=== PATIENT | female | born 1975 | race Caucasian/White ===

== ENCOUNTER 2017-08-05 13:27 | Inpatient (IN) | payer BC ==
[~2017-08-05] VITALS: Ht 157.5 cm; Wt 86.2 kg
[2017-08-05 13:31] VITALS: BP_SYST 142
--- NOTE | 2017-08-05 13:35 | NUR ---
RECEIVED REPORT FROM PHYLLIS TRIAGE NURSE AND WILL ASSUME CARE. PT STATES THAT SHE GETS WINDED EVEN WITH SMALL AMT OF EXERTION. RECENT H/O BLACK TARRY STOOLS. DENIES ANY PAIN OR DISCOMFORT
[2017-08-05] MEDS ORDERED: NACL 0.9% 1,000 ML IV SCH (13:46)
--- NOTE | 2017-08-05 13:50 | NUR ---
IV STARTED AND LABS SENT
--- NOTE | 2017-08-05 13:55 | NUR ---
XRAYS BEING DONE AT BEDSIDE.
[2017-08-05] MEDS ORDERED: PANTOPRAZOLE SODIUM 40 MG/VIAL (PROTONIX) IVP ONE (14:00)
[2017-08-05 14:12] LABS: BASOPHILS % (AUTO) 0.5 % (0.0-2.0); EOSINOPHILS # (AUTO) 0.1 K/uL (0.0-0.4); EOSINOPHILS % (AUTO) 1.6 % (0.0-4.0); HEMATOCRIT 25.9 % (36-48); HEMOGLOBIN 8.5 g/dL (12.0-16.0); LYMPHOCYTES # (AUTO) 2.3 K/uL (1.0-5.5); LYMPHOCYTES % (AUTO) 29.5 % (20.5-51.5); MEAN CORPUSCULAR HEMOGLOBIN 29 pg (27-31); MEAN CORPUSCULAR HGB CONC 33 % (32-36); MEAN CORPUSCULAR VOLUME 89 fL (79.0-98.0); MONOCYTES # (AUTO) 0.5 K/uL (0.0-1.0); NEUTROPHILS # (AUTO) 4.9 K/uL (1.8-7.7); NEUTROPHILS % (AUTO) 62.4 % (40.0-70.0); PLATELET COUNT (AUTO) 312 K/uL (130-430); RED BLOOD CELL COUNT(AUTO) 2.92 MIL/uL (4.2-6.2); RED CELL DISTRIBUTION WIDTH 12.7 % (9.0-15.0); WHITE BLOOD COUNT (AUTO) 7.8 K/uL (4.8-10.8)
[2017-08-05 14:20] LABS: CALCIUM 8.5 mg/dL (8.4-11.0); CREATININE 0.86 mg/dL (0.55-1.30); POTASSIUM 3.8 mmol/L (3.5-5.1)
--- NOTE | 2017-08-05 14:22 | NUR ---
TAKEN TO RADIOLOGY VIA BAILEE
[2017-08-05 14:25] LABS: ALBUMIN 3.7 g/dL (3.4-4.8); TOTAL BILIRUBIN 0.4 mg/dL (0.0-1.0)
--- NOTE | 2017-08-05 14:35 | NUR ---
Rectal exam performed by DR RIDLEY with TEMI QUEZADA RN at bedside during procedure. Patient tolerated well.
[2017-08-05 14:45] LABS: INR 0.9 (0.8-1.2); PROTHROMBIN TIME 9.3 SECS (9.5-12.5)
--- NOTE | 2017-08-05 14:45 | NUR ---
PT IS UNAWARE OF DOSAGE OF LEVOTHYROXINE AND TAKES A BLOOD PRESSURE MEDICATION, UNAWARE OF NAME OF MED. DR ANDRADE AWARE
--- NOTE | 2017-08-05 15:11 | NUR ---
Patient will be admitted to care of DR ANDRADE. Admitted to MED SURG unit. Will go to room 119-B. Belongings list completed. Summary report printed. Report GIVEN TO LEO
--- NOTE | 2017-08-05 15:26 | NUR ---
ADMISSION NOTE Received patient from ER via arabella, received report from TEMI JUSTIN. Patient admitted with diagnosis of GI BLEED. Patient oriented to hospital routine, call light, toileting and safety-patient verbalized understanding.
[2017-08-05 15:32] VITALS: BP_SYST 130
--- NOTE | 2017-08-05 15:38 | NUR ---
CONSULT GI GI BLEED DR DOAN [phone] DR WILLIAMSON IMPROVEMENT COORDINATOR S/W KANE EXCHANGE @ [phone]
[2017-08-05 16:00] VITALS: BP_SYST 130
--- NOTE | 2017-08-05 16:00 | NUR ---
INITIAL NOTE PT LAYING IN BED, AWAKE, ALERT AND ORIENTED X4, NO S/S OF ACUTE DISTRESS, NO COMPLIANT OF PAIN AT THIS TIME, VSS, BREATHING EVEN AND UNLABORED, IV TO LAC INTACT AND INFUSING D5 NS AT 100, NO S/S OF INFILTRATION NOTED, PLAN OF CARE DISCUSSED, PT AWARE OF GI CONSULT PLACED FOR DR DOAN, PT ORIENTED TO ROOM AND USE OF CALL LIGHT, PT ENCOURAGED TO NOT GET OUT BED BY HERSELF TO PLEASE ASK FOR ASSISTANCE, SAFETY PRECAUTIONS IN PLACE, CALL LIGHT WITHIN REACH, WILL MONITOR PT CLOSELY, SEVERAL FAMILY MEMBERS NOTED AT BEDSIDE.
[2017-08-05] MEDS: D5NS 500 ML IV SCH ×2 (16:09→20:00)
[2017-08-05] MEDS ORDERED: LEVO50TA77 PO (16:10)
[2017-08-05] MEDS ORDERED: LOSA50TA3 PO (16:10)
[2017-08-05] MEDS ORDERED: CYAN50008 PO (16:15)
[2017-08-05] MEDS ORDERED: FOLI-43 PO (16:15)
[2017-08-05] MEDS ORDERED: MULT-1100 PO (16:18)
[2017-08-05] MEDS ORDERED: MUPIROCIN 2% TOPICAL OINTMENT 22 GM NS PRN (16:30)
[2017-08-05] MEDS ORDERED: LORazepam 2 MG/ML VIAL IVP PRN (16:30)
[2017-08-05] MEDS ORDERED: ACETAMINOPHEN 325 MG TABLET PO PRN (16:30)
[2017-08-05] MEDS ORDERED: MAGNESIUM SULFATE 50 ML IV PRN (16:30)
[2017-08-05] MEDS ORDERED: ZOLPIDEM TARTRATE 5 MG TABLET PO PRN (16:30)
[2017-08-05] MEDS ORDERED: MORPHINE 2 MG/ML INJ. SYRINGE IVP PRN (16:30)
[2017-08-05] MEDS ORDERED: POTASSIUM CHLORIDE 20 MEQ TAB.PRT.SR PO PRN (16:30)
[2017-08-05] MEDS ORDERED: ONDANSETRON HCL 4 MG/2 ML VIAL IVP PRN (16:30)
[2017-08-05] MEDS ORDERED: DOCUSATE SODIUM 100 MG CAPSULE PO PRN (16:30)
[2017-08-05 16:57] VITALS: BP_SYST 132
--- NOTE | 2017-08-05 17:08 | NUR ---
DR WILLIAMSON CALLED FOR PATIENT HISTORY AND STATUS, UPDATED ON PATIENT AND LABS, NEW ORDER RECEIVED TO GET CONSENT FOR EGD IN AM, PT TO BE NPO AFTER MIDNIGHT, WILL PLACE ORDERS AND UPDATED PATIENT
--- NOTE | 2017-08-05 18:47 | NUR ---
CLOSING NOTE PATIENT SITTING UP IN BED, FAMILY AT BEDSIDE, NO S/S OF ACUTE DISTRESS, DENIES ANY PAIN AT THIS TIME, PT AWARE SHE WILL BE NPO AFTER MIDNIGHT, ALL NEEDS ATTENDED TO, SAFETY PRECAUTIONS MAINTAINED, CALL LIGHT WITHIN REACH, WILL GIVE REPORT TO FOLLOWING SHIFT
--- NOTE | 2017-08-05 20:20 | NUR ---
Opening note and new IV Patient in bed with family at bedside. Patient AAOX4 and able to make needs known. Patient verbalized understanding about not eating or drinking anything by mouth after midnight. Patient educated on the use of the call light and patient verbalized understanding. IV to right AC infiltrated. Will start new one. Bed in lowest position with bed alarm on and call light with patient.
--- NOTE | 2017-08-05 20:50 | NUR ---
New IV New IV started on Right AC 20 gauge Patent with no redness noted. IVF started with patient tolerating well.
[2017-08-05 21:03] VITALS: BP_SYST 149
--- NOTE | 2017-08-05 22:45 | NUR ---
RN notes Patient in bed resting. No acute distress or SOB noted at this time. All needs met. Bed in lowest position with bed alarm on and call light with patient.
--- NOTE | 2017-08-06 00:05 | NUR ---
RN notes Patient in bed sleeping. No acute distress or SOB noted at this time. IVF running as ordered with patient tolerating well. All needs met. Bed in lowest position with bed alarm on and call light with patient.
[2017-08-06 00:13] VITALS: BP_SYST 101
[2017-08-06] MEDS: D5NS 500 ML IV SCH ×3 (03:00→20:35)
--- NOTE | 2017-08-06 06:45 | NUR ---
Closing Notes Patient in bed sleeping. No acute distress or SOB noted at this time. IVF running as ordered with patient tolerating well. Hourly rounding done throughout shift and PRN . All needs met. Bed in lowest position with bed alarm on and call light with patient. Will endorse to day shift nurse patient's plan of care.
[2017-08-06 06:49] LABS: BASOPHILS % (AUTO) 0.3 % (0.0-2.0); EOSINOPHILS # (AUTO) 0.1 K/uL (0.0-0.4); LYMPHOCYTES # (AUTO) 2.4 K/uL (1.0-5.5); LYMPHOCYTES % (AUTO) 37.6 % (20.5-51.5); MEAN CORPUSCULAR HEMOGLOBIN 30 pg (27-31); MEAN CORPUSCULAR HGB CONC 34 % (32-36); MEAN CORPUSCULAR VOLUME 90 fL (79.0-98.0); MONOCYTES # (AUTO) 0.4 K/uL (0.0-1.0); NEUTROPHILS # (AUTO) 3.6 K/uL (1.8-7.7); NEUTROPHILS % (AUTO) 54.1 % (40.0-70.0); PLATELET COUNT (AUTO) 259 K/uL (130-430); RED BLOOD CELL COUNT(AUTO) 2.24 MIL/uL (4.2-6.2); WHITE BLOOD COUNT (AUTO) 6.5 K/uL (4.8-10.8)
[2017-08-06] MEDS: LEVOTHYROXINE SODIUM 0.05 MG TABLET PO SCH (07:00)
[2017-08-06 07:12] LABS: HEMOGLOBIN 6.7 g/dL (12.0-16.0)
[2017-08-06 07:13] LABS: HEMATOCRIT 20.1 % (36-48)
[2017-08-06 07:17] LABS: CALCIUM 7.8 mg/dL (8.4-11.0); CREATININE 0.7 mg/dL (0.55-1.30); POTASSIUM 3.7 mmol/L (3.5-5.1)
--- NOTE | 2017-08-06 07:25 | NUR ---
Initial Note Received report from the night nurse Madelaine. Pt AOX4. No signs of distress noted at this time. Bed is at lowest position with alarm ON. Call light within reach. Pt''s H/H 6.7/20.1 Waiting for blood transfusion orders.
[2017-08-06] MEDS ORDERED: ACETAMINOPHEN 325 MG TABLET PO ONE (07:30)
[2017-08-06] MEDS ORDERED: LORATADINE 10 MG TABLET PO ONE (07:30)
[2017-08-06 07:45] VITALS: BP_SYST 152
[2017-08-06] MEDS: PANTOPRAZOLE SODIUM 40 MG/VIAL (PROTONIX) IVP SCH (08:48)
[2017-08-06] MEDS: MORPHINE 2 MG/ML INJ. SYRINGE IVP PRN ×2 (08:51→17:44)
[2017-08-06] MEDS: LOSARTAN POTASSIUM 50 MG TABLET (COZAAR) PO SCH (09:00)
--- NOTE | 2017-08-06 10:15 | NUR ---
Blood transfusion 1st blood transfusion started
--- NOTE | 2017-08-06 10:30 | NUR ---
Blood transfusion Pt is tolerating well the 1st blood transfusion order. Vital signs are within normal limit. No signs of allergic reaction noted.
--- NOTE | 2017-08-06 11:25 | NUR ---
RN Rounds Pt is having one unit of PRBCs at this time. Pt is tolerating well the blood transfusion. No signs of distress noted at this time. Bed is at lowest position with bed alarm ON. Family members at bedside. Call light within reach.
[2017-08-06] MEDS ORDERED: SIMETHICONE 40 MG/0.6 ML ML ONE (11:42)
[2017-08-06 12:17] VITALS: BP_SYST 127
--- NOTE | 2017-08-06 12:43 | NUR ---
Blood transfusion 1st Blood transfusion has finished. Pt's vital signs within normal limit.
[2017-08-06] MEDS: MIDAZOLAM HCL 5 MG/5 ML VIAL ONE ×4 (13:48→13:54)
[2017-08-06] MEDS: MEPERIDINE HCL/PF 100 MG/ML AMP ONE ×3 (13:48→13:56)
--- NOTE | 2017-08-06 15:30 | NUR ---
RN Rounds Pt is having the second unit of blood transfusion. Pt is tolerating well the blood transfusion. No signs of allergic reaction noted. Bed is at lowest position with bed alarm ON. Call light within reach.
[2017-08-06 16:00] VITALS: BP_SYST 119
[2017-08-06] MEDS ORDERED: BISACODYL 5 MG TABLET.DR (DULCOLAX) PO ONE (17:00)
--- NOTE | 2017-08-06 17:30 | NUR ---
2ND Unit of blood transfusion Pt tolerated well the 2nd unit of blood transfusion. V/S within normal limits at the end of transfusion.
[2017-08-06] MEDS ORDERED: GOLYTELY / COLYTE SOLUTION 4 LITERS PO ONE (18:00)
--- NOTE | 2017-08-06 18:58 | NUR ---
Closing Note Pt AOX4. No signs of distress noted at this time. Bed is at lowest position with alarm ON. Family members at bedside. Call light within reach. Pt is on GO lite preparing for colonoscopy on 08/07 in AM. Pt needs to be NPO after midnight and have a tap water enema in AM. Pt had a Esophagogastroduodenoscopy with biopsy done today.
--- NOTE | 2017-08-06 19:25 | NUR ---
RN Opening Note: Report received from NHAN Patino. Pt presented sitting in chair near bathroom door. Multiple family members present. Pt is awake, alert and oriented x4. Denies pain. IVF infusing without problems. Site clear. Will continue to monitor.
[2017-08-06 20:31] VITALS: BP_SYST 153
--- NOTE | 2017-08-06 20:35 | NUR ---
RN note: Pt continues to sit near bathroom door. Drinking GoLytely bowel prep for colonoscopy in am. No distress noted. Tolerating prep well. Ambulating to bathroom without difficulty. Gait steady. Pt states she "feels much better after transfusions, even my headaches are gone." VSS. Assessed. IVF changed to D5.9NS. Rate changed to 100ml/hr. All questions/concerns addressed. Pt aware of tap water enema in a.m. and NPO status after midnight. Will continue to monitor pt.
--- NOTE | 2017-08-06 22:00 | NUR ---
RN Note/Bowel prep completed: Pt consumed GoLytely bowel prep in it's entirety. States she is bowels are becoming clear. Offered BSC for pt to use during the night. Pt refused. Mother at bedside, will spend the night with pt. Urine culture collected and taken to lab. All needs met.
[2017-08-06 23:16] LABS: BILIRUBIN,URINE NEGATIVE (NEGATIVE); BLOOD, URINE 3+ (NEGATIVE); CLARITY/URINE SL CLOUDY (CLEAR); COLOR,URINE YELLOW (YELLOW); GLUCOSE,URINE NEGATIVE (NEGATIVE); KETONES,URINE NEGATIVE (NEGATIVE); LEUKOCYTE ESTERASE ,URINE NEGATIVE (NEGATIVE); NITRITE, URINE NEGATIVE (NEGATIVE); PH,URINE 5.5 (5.0-8.0); PROTEIN URINE NEGATIVE (NEGATIVE); UROBILINOGEN,URINE 0.2 (0.2-1.0)
[2017-08-06 23:23] LABS: BACTERIA,URINE FEW /HPF (None Seen); RBC,URINE >100 /HPF (0-3); WBC,URINE 0-3 /HPF (0-3)
[2017-08-06 23:29] VITALS: BP_SYST 127
--- NOTE | 2017-08-06 23:33 | NUR ---
RN round: Pt ready to go to sleep. All needs addressed. IVF continue to infuse without difficulty. Site benign. Belongings and Call light within reach. Bed in lowest position with brake on. Side rails up x2.
--- NOTE | 2017-08-07 | NUR ---
RN Note/NPO status: Pt NPO for colonoscopy tomorrow and is aware.
--- NOTE | 2017-08-07 01:30 | NUR ---
RN rounds: Pt sleeping without distress. Resp easy and even. Skin warm, dry and pink. IVF infusing without problems. Mother asleep in chair next to pt's bed.
--- NOTE | 2017-08-07 03:54 | NUR ---
RN rounds: Pt asleep without distress. IVF infusing at 100 ml/hr as per MD order. Pt in NAD. Mother sleep in chair at bedside.
--- NOTE | 2017-08-07 06:45 | NUR ---
RN note/ Enema until clear: Pt given 1500 ml total of warm tap water until return was clear. Pt kasandra procedure very well. IVF continues to infuse at 100 ml/hr with no problems. Dry blood noted at IV site but line was flushed with 10 ml NS as per protocol with no s/s of infiltration and no pain. Pt continues to deny pain/discomfort. Anxiously awaiting tests and results to follow. Will endorse pt to dayshift RN for continuity of care.
[2017-08-07 06:46] LABS: PROTHROMBIN TIME 9.9 SECS (9.5-12.5)
[2017-08-07 06:53] LABS: CALCIUM 8.1 mg/dL (8.4-11.0); CREATININE 0.6 mg/dL (0.55-1.30); POTASSIUM 3.5 mmol/L (3.5-5.1)
[2017-08-07 07:00] LABS: BASOPHILS % (AUTO) 0.4 % (0.0-2.0); EOSINOPHILS # (AUTO) 0.1 K/uL (0.0-0.4); EOSINOPHILS % (AUTO) 1.7 % (0.0-4.0); HEMATOCRIT 24.6 % (36-48); HEMOGLOBIN 8.3 g/dL (12.0-16.0); LYMPHOCYTES # (AUTO) 1.6 K/uL (1.0-5.5); LYMPHOCYTES % (AUTO) 29.8 % (20.5-51.5); MEAN CORPUSCULAR HEMOGLOBIN 30 pg (27-31); MEAN CORPUSCULAR HGB CONC 34 % (32-36); MEAN CORPUSCULAR VOLUME 90 fL (79.0-98.0); MONOCYTES # (AUTO) 0.4 K/uL (0.0-1.0); MONOCYTES % (AUTO) 8.2 % (1.7-9.3); NEUTROPHILS # (AUTO) 3.2 K/uL (1.8-7.7); NEUTROPHILS % (AUTO) 59.9 % (40.0-70.0); PLATELET COUNT (AUTO) 220 K/uL (130-430); RED BLOOD CELL COUNT(AUTO) 2.74 MIL/uL (4.2-6.2); RED CELL DISTRIBUTION WIDTH 12.7 % (9.0-15.0); WHITE BLOOD COUNT (AUTO) 5.3 K/uL (4.8-10.8)
[2017-08-07] MEDS: D5NS 500 ML IV SCH ×5 (07:00→16:59)
[2017-08-07] MEDS ORDERED: SIMETHICONE 40 MG/0.6 ML ML ONE (07:12)
[2017-08-07] MEDS ORDERED: MEPERIDINE HCL/PF 100 MG/ML AMP ONE (07:12)
[2017-08-07] MEDS ORDERED: MIDAZOLAM HCL 5 MG/5 ML VIAL ONE (07:12)
--- NOTE | 2017-08-07 07:40 | NUR ---
Note Pt off the floor via wheelchair to GI lab for colonoscopy. Pt's IVF's were saline locked at this time. No SOB/resp distress or pain/discomfort noted at this time. IV in right AC intact and patent at this time.
[2017-08-07 07:57] VITALS: BP_SYST 128
[2017-08-07] MEDS: LOSARTAN POTASSIUM 50 MG TABLET (COZAAR) PO SCH (09:00)
--- NOTE | 2017-08-07 09:05 | NUR ---
Note Pt back from GI lab. Regular diet tray ordered for the pt at this time per Dr Samano's order. No needs noted at this time. Findings were negative for any significant bleed. Pt has hemorrhoids. Small bowel follow through test ordered. No needs noted. Call light within reach.
[2017-08-07] MEDS: LEVOTHYROXINE SODIUM 0.05 MG TABLET PO SCH (09:23)
[2017-08-07] MEDS: PANTOPRAZOLE SODIUM 40 MG/VIAL (PROTONIX) IVP SCH (09:24)
--- NOTE | 2017-08-07 10:00 | NUR ---
Note Radiology dept called, their equipment has been down for few days, not sure when the equipment will be up. Test cannot been done today. Dr Samano was called, waiting for call back. No needs noted. Call light within reach.
--- NOTE | 2017-08-07 11:30 | NUR ---
Note Pt sitting up in bed after eating her regular diet. No N/V noted at this time. Pt's mother at bedside at this time - has been at bedside the whole shift. No needs noted at this time. Call light within reach. Pt able to take fluids without any difficulty. Right AC IV intact and patent at this time.
[2017-08-07 12:24] VITALS: BP_SYST 103
--- NOTE | 2017-08-07 13:10 | NUR ---
Note Spoke to Dr Samano and notified MD that equipment for small bowel series has been down, not sure when machine will be up and working. Dr Samano requested that case management be called to see if pt can be transferred to [facility] for the procedure. clinical product manager Zack was called and notified, complex case manager will find out if transfer is possible and will get back to the RN.
[2017-08-07] MEDS: MORPHINE 2 MG/ML INJ. SYRINGE IVP PRN ×2 (16:08→22:57)
--- NOTE | 2017-08-07 16:21 | NUR ---
DC Planning- Received a message from Tayler luna: nurse inquiring possible transfer to [facility] regarding small bowel follow through. CM spoke with patient agreeable for CM to contact [facility]. CM called our Radiology dept first about pt's procedure for small bowel follow through, per Malcolm our machine is down and might be operational tomorrow. Malcolm instructed CM to call tomorrow morning. CM called [facility] p# , per Rob small bowel follow through might take 10-24 hours it would be better to have patient transfer tomorrow if our machine is still down.
--- NOTE | 2017-08-07 16:25 | NUR ---
Note Dr Samano was called and notified that counter caser Karen stated she checked with Radiology dept, they would have the equipment up and running by tomorrow and the "small bowel follow through" will be done in am. Pt resting in bed after Morphine IVP medication was given for moderate headache. Call light within reach.
--- NOTE | 2017-08-07 16:27 | NUR ---
IN 1529- BANDAR received a phone call from NHAN Arguelles that Callie [phone] called at nursing station and ambulance will arrive within 45 minutes. BANDAR called Callie and per Nury, the ambulance is [facility]. Patient's packet to complete given to gift shop assistant Sai. Addendum: 08/07/17 at 1632 by Karen Rivera RN Error entry. the documentation is for another patient.
[2017-08-07 16:28] VITALS: BP_SYST 115
--- NOTE | 2017-08-07 18:00 | NUR ---
NOTE Pt was resting in bed, now sitting up eating her dinner. Right AC IV intact and patent at this time, saline locked. No SOB/resp distress or headache pain/discomfort noted. Pt was checked on q1' and PRN for needs and care. Dr Alvarez was also made aware that pt will have her "small bowel follow through" tomorrow am. No needs noted. Call light within reach.
[2017-08-07 19:30] VITALS: BP_SYST 128
--- NOTE | 2017-08-07 19:30 | NUR ---
INITIAL NOTES REPORT RECEIVED FROM DAY NURSE AT THE BEDSIDE. PT IS ALERT AWAKE AND ORIENTED, ABLE TO MAKE NEEDS KNOWN. NO S/S OF SOB OR ACUTE DISTRESS. VSS. PATIENT DENIES PAIN AT THIS TIME. PATIENT HAS IV ACCESS TO RIGHT AC, HOWEVER SHE STATES IT IS BOTHERING HER AND WOULD LIKE IT TO BE REMOVED. IV WAS REMOVED PER PATIENT REQUEST. CATHETER INTACT, NO ACTIVE BLEEDING NOTED. WILL RESTART NEW IV. PLAN OF CARE DISCUSSED WITH THE PATIENT. USE OF CALL LIGHT ENCOURAGED. WILL CONT. TO MONITOR FOR ANY CHANGES. SAFETY AND FALL PRECAUTIONS IN PLACE. CALL LIGHT IN REACH. FAMILY AT THE BEDSIDE. Addendum: 08/07/17 at 2116 by Noreen Perez RN MACHINES FOR SMALL BOWEL FOLLOW THROUGH ARE TO BE UP AND RUNNING TOMORROW. PT. INFORMED THAT SHE SHOULD BE NPO PAST MIDNIGHT IN CASE THE PROCEDURE TAKES PLACE. PAYABLE REPRESENTATIVE AWARE.
--- NOTE | 2017-08-07 22:30 | NUR ---
ROUNDS PT SHOWERED. PT WAS PROVIDED WITH NEW LINEN AND GOWNS. PT RESTING IN BED COMFORTABLY. NEW IV STARTED BY AQUATICS SPECIALIST LARRY. #20 TO LEFT FOREARM. FLUSHES WELL WITH GOOD BLOOD RETURN. ALL NEEDS MET AT THIS TIME. WILL CONT. TO MONITOR.
[2017-08-08 00:09] VITALS: BP_SYST 125
--- NOTE | 2017-08-08 00:56 | NUR ---
ROUNDS PT. RESTING IN BED WITH EYES CLOSED. CHEST RISE AND FALL NOTED. NO SIGNS OF ACUTE DISTRESS. NO FACIAL GRIMACING INDICATING PAIN. PT. NPO FOR PROBABLY SMALL BOWEL FOLLOW THROUGH IN AM IF MACHINES ARE WORKING. WILL CONT. TO MONITOR FOR CHANGES. SAFETY AND FALL PRECAUTIONS IN PLACE. CALL LIGHT IN REACH.
--- NOTE | 2017-08-08 02:15 | NUR ---
ROUNDS PT. RESTING IN BED, NO SIGNS OF DISTRESS. DENIES PAIN AT THIS TIME. IV PATENT AND INTACT. ALL NEEDS MET AT THIS TIME. WILL CONT. TO MONITOR FOR CHANGES. SAFETY AND FALL PRECAUTIONS IN PLACE, CALL LIGHT IN REACH.
--- NOTE | 2017-08-08 04:15 | NUR ---
ROUNDS PT. RESTING IN BED WITH EYES CLOSED. CHEST RISE AND FALL NOTED. NO SIGNS OF ACUTE DISTRESS, NO FACIAL GRIMACING FOR PAIN. WILL CONT. TO MONITOR. CALL LIGHT IN REACH.
[2017-08-08] MEDS: LEVOTHYROXINE SODIUM 0.05 MG TABLET PO SCH (06:06)
--- NOTE | 2017-08-08 06:23 | NUR ---
CLOSING NOTES PT. RESTING IN BED AT THIS TIME. IV REMAINS PATENT AND INTACT. PT. DENIES PAIN AND DISCOMFORT AT THIS TIME. PT. REMAINED NPO SINCE MIDNIGHT FOR POSSIBLE SMALL BOWEL FOLLOW THROUGH THIS AM IF MACHINES ARE WORKING. ALL NECESSARY NEEDS WERE MET THROUGHOUT THE SHIFT. SAFETY AND FALL PRECAUTIONS WERE MAINTAINED. WILL ENDORSE CARE TO AM NURSE. CALL LIGHT IN REACH, BED IN LOWEST LOCKED POSITION.
[2017-08-08 06:59] LABS: EOSINOPHILS # (AUTO) 0.1 K/uL (0.0-0.4); EOSINOPHILS % (AUTO) 1.6 % (0.0-4.0); HEMATOCRIT 25.2 % (36-48); HEMOGLOBIN 8.4 g/dL (12.0-16.0); LYMPHOCYTES # (AUTO) 1.1 K/uL (1.0-5.5); LYMPHOCYTES % (AUTO) 13.3 % (20.5-51.5); MEAN CORPUSCULAR HEMOGLOBIN 30 pg (27-31); MEAN CORPUSCULAR HGB CONC 34 % (32-36); MEAN CORPUSCULAR VOLUME 90 fL (79.0-98.0); MONOCYTES # (AUTO) 0.5 K/uL (0.0-1.0); NEUTROPHILS # (AUTO) 6.9 K/uL (1.8-7.7); NEUTROPHILS % (AUTO) 79.1 % (40.0-70.0); PLATELET COUNT (AUTO) 281 K/uL (130-430); RED BLOOD CELL COUNT(AUTO) 2.81 MIL/uL (4.2-6.2); RED CELL DISTRIBUTION WIDTH 13.1 % (9.0-15.0); WHITE BLOOD COUNT (AUTO) 8.6 K/uL (4.8-10.8)
[2017-08-08 07:03] LABS: CREATININE 0.71 mg/dL (0.55-1.30); POTASSIUM 3.9 mmol/L (3.5-5.1)
--- NOTE | 2017-08-08 07:35 | NUR ---
OPENING NOTE: RECEIVED PATIENT FROM USHA HAY NURSE. PATIENT AAOX4. NO ACUTE SIGNS OF RESP DISTRESS, NO SOB. BREATHING EVEN AND UNLABORED. IV INTACT AND NO REDNESS/SWELLING TO SITE. BED AT LOWEST POSITION, CALL LIGHT IN REACH. UPDATED PATIENT WITH PLAN OF CARE, PATIENT VERBALIZED UNDERSTANDING.
[2017-08-08 08:00] VITALS: BP_SYST 131
--- NOTE | 2017-08-08 08:01 | NUR ---
Nutrition Update Joseph Scale 18 noted. Pt admitted for gastrointestinal bleed Diet: regular diet BMI: 34.8 kg/m2 RD to follow per nutrition care standards.
--- NOTE | 2017-08-08 08:15 | NUR ---
PATIENT WENT TO GI: PATIENT WENT TO GI FOR SMALL BOWEL SERIES.
--- NOTE | 2017-08-08 10:24 | NUR ---
AMEYA King Note- 0800- CM spoke with Kaycee of Radiology , Per Kaycee our machine is working today and they can do Small bowel Follow through. 0900- CM went to pt room, pt not there , however, mother at bedside. Pt's Mother informed CM that pt is already having her Small bowel Follow through study.
[2017-08-08] MEDS: PANTOPRAZOLE SODIUM 40 MG/VIAL (PROTONIX) IVP SCH (11:34)
[2017-08-08] MEDS: LOSARTAN POTASSIUM 50 MG TABLET (COZAAR) PO SCH (11:35)
[2017-08-08 12:00] VITALS: BP_SYST 132
--- NOTE | 2017-08-08 12:00 | NUR ---
ROUNDING: PATIENT IS BACK IN ROOM FROM RADIOLOGY. PATIENT AAOX4. NO ACUTE SIGNS OF RESP DISTRESS, NO SOB. BREATHING EVEN AND UNLABORED. IV INTACT AND PATENT, NO REDNESS/SWELLING TO SITE. BED AT LOWEST POSITION, CALL LIGHT IN REACH. ALL NEEDS MET AT THIS TIME.
[2017-08-08] MEDS ORDERED: FERR-57 PO (13:49)
[2017-08-08 14:04] VITALS: BP_SYST 131
--- NOTE | 2017-08-08 14:05 | NUR ---
ROUNDING: PATIENT RESTING IN BED COMFORT. PATIENT AWAKE AND ALERT. NO ACUTE SIGNS OF RESP DISTRESS, NO SOB. BREATHING EVEN AND UNLABORED. IV INTACT AND PATENT, NO REDNESS/SWELLING TO SITE. BED AT LOWEST POSITION, CALL LIGHT IN REACH.
--- NOTE | 2017-08-08 15:00 | NUR ---
DR. WILLIAMSON AT BEDSIDE: DR. WILLIAMSON AT BESIDE SPEAKING WITH PATIENT AND FAMILY IN REGARDS TO PATIENT'S PROCEDURE RESULTS AND PLAN OF CARE.
[2017-08-08] MEDS ORDERED: PRO40 PO (15:21)
[2017-08-08 15:25] VITALS: BP_SYST 131
--- NOTE | 2017-08-08 15:33 | NUR ---
D/C Patient Patient given medication reconciliation form and D/C instructions. Exit Care provided. Patient verbalized understanding. MD discussed with patient the results and treatment provided. Ambulatory with steady gait for discharge to home. Patient in stable condition, ID band removed. IV catheter removed, intact and dressing applied, no active bleeding. Rx of given. Patient educated on pain management. All belongings sent with patient. Dr. Samano spoke to patient in regards with following up with Primary Care Provider and Dr. Samano for Pill Cam. Patient verbalized understanding.
== END 2017-08-08 15:33 | disposition home or self-care (01) | DRG 379 ==
LOC: SED 13:27 → SMU 14:58
PROVIDERS: ADMIT General Practice; ATTEND General Practice
PROC: 0DBA8ZX Excision of Jejunum, Via Natural or Artificial Opening Endoscopic, Diagnostic (ICD-10-PCS; 2017-08-06)
PROC: 0DB68ZX Excision of Stomach, Via Natural or Artificial Opening Endoscopic, Diagnostic (ICD-10-PCS; 2017-08-06)
PROC: 30233N1 Transfusion of Nonautologous Red Blood Cells into Peripheral Vein, Percutaneous Approach (ICD-10-PCS; principal; 2017-08-06 14:00)
PROC: 0DJD8ZZ Inspection of Lower Intestinal Tract, Via Natural or Artificial Opening Endoscopic (ICD-10-PCS; 2017-08-07)
DX: K29.71 Gastritis, unspecified, with bleeding (principal); D50.0 Iron deficiency anemia secondary to blood loss (chronic); E03.9 Hypothyroidism, unspecified; K64.8 Other hemorrhoids; K52.9 Noninfective gastroenteritis and colitis, unspecified; I10 Essential (primary) hypertension; E66.9 Obesity, unspecified; Z87.891 Personal history of nicotine dependence; Z98.84 Bariatric surgery status; Z68.34 Body mass index [BMI] 34.0-34.9, adult; Z79.899 Other long term (current) drug therapy
CPT/HCPCS: 36415; 43239; 45378; 71045; 74250-TC; 80048; 80053; 81000-TC; 83735-TC; 85025; 85610-TC; 85730-TC; 86886; 86900; 86901; 86920; 87081; 88305; 88312; 88313; 93005; 96361; 96372; 99285; C9113; J2175; J2250; J2270; J7030; J7042; J7060; P9021

== ENCOUNTER 2017-11-09 10:50 | Day surgery (SDC) | payer BC ==
[~2017-11-09] VITALS: Ht 157.5 cm; Wt 90.3 kg
[~2017-11-09 10:50] MED LIST: CYAN50008 PO; FERR-57 PO; FOLI-43 PO; LEVO50TA77 PO; LOSA50TA3 PO; MULT-1100 PO; PRO40 PO
[2017-11-09 11:28] LABS: BASOPHILS % (AUTO) 0.7 % (0.0-2.0); EOSINOPHILS # (AUTO) 0.1 K/uL (0.0-0.4); EOSINOPHILS % (AUTO) 1.7 % (0.0-4.0); HEMATOCRIT 37.6 % (36-48); HEMOGLOBIN 12.5 g/dL (12.0-16.0); LYMPHOCYTES # (AUTO) 1.4 K/uL (1.0-5.5); MEAN CORPUSCULAR HEMOGLOBIN 29 pg (27-31); MEAN CORPUSCULAR HGB CONC 33 % (32-36); MEAN CORPUSCULAR VOLUME 87 fL (79.0-98.0); MONOCYTES # (AUTO) 0.5 K/uL (0.0-1.0); MONOCYTES % (AUTO) 7.8 % (1.7-9.3); NEUTROPHILS # (AUTO) 3.9 K/uL (1.8-7.7); NEUTROPHILS % (AUTO) 66.8 % (40.0-70.0); PLATELET COUNT (AUTO) 297 K/uL (130-430); RED CELL DISTRIBUTION WIDTH 13.1 % (9.0-15.0); WHITE BLOOD COUNT (AUTO) 5.9 K/uL (4.8-10.8)
[2017-11-09] MEDS ORDERED: SEVOFLURANE 15 MIN GAS INH ONE (14:10)
[2017-11-09] MEDS ORDERED: LR 1,000 ML IV.SOLN IV ONE (14:10)
[2017-11-09] MEDS ORDERED: CEFAZOLIN 2 GM IVPB PREMIX 50 ML IV ONE (14:10)
[2017-11-09] MEDS ORDERED: NS IRRIG SOLN 1000 ML IR ONE (14:10)
[2017-11-09] MEDS ORDERED: fentaNYL CITRATE/PF 100 MCG/2 ML AMP IVP ONE (14:10)
[2017-11-09] MEDS ORDERED: MIDAZOLAM HCL 5 MG/5 ML VIAL IVP ONE (14:10)
[2017-11-09] MEDS ORDERED: fentaNYL CITRATE/PF 100 MCG/2 ML AMP IVP PRN ×2 (14:45)
[2017-11-09] MEDS ORDERED: ONDANSETRON HCL 4 MG/2 ML VIAL IVP PRN ×2 (14:45→15:15)
[2017-11-09] MEDS ORDERED: KETOROLAC TROMETHAMINE 30 MG VIAL IVP PRN (14:45)
[2017-11-09] MEDS ORDERED: fentaNYL CITRATE/PF 100 MCG/2 ML AMP ONE (15:15)
[2017-11-09] MEDS ORDERED: HYDROcodone/ACETAMIN 5-325 MG TAB (NORCO/ VICODIN) PO PRN (15:15)
[2017-11-09 15:54] VITALS: BP_SYST 132
== END 2017-11-09 16:55 | disposition home or self-care (01) ==
LOC: SDS 10:50
PROVIDERS: ATTEND Specialist
DX: O03.4 Incomplete spontaneous abortion without complication (principal); I10 Essential (primary) hypertension; E66.9 Obesity, unspecified; Z98.84 Bariatric surgery status; E03.9 Hypothyroidism, unspecified; D64.9 Anemia, unspecified
CPT/HCPCS: 36415; 59812; 85025; 86886; 86900; 86901; 88305; J0690; J2250; J3010; J7120

== ENCOUNTER 2018-03-01 09:15 | Emergency (ER) | payer BC ==
[~2018-03-01] VITALS: Ht 157.5 cm; Wt 86.2 kg
[~2018-03-01 09:15] MED LIST changes: -LEVO50TA77 PO; +SYN50 PO
[2018-03-01 09:28] VITALS: BP_SYST 133
[2018-03-01] MEDS ORDERED: HYDROcodone/ACETAMIN 7.5-325 MG TAB PO ONE (10:45)
[2018-03-01] MEDS ORDERED: IBUPROFEN 600 MG TABLET PO ONE (10:45)
[2018-03-01 11:15] VITALS: BP_SYST 133
== END 2018-03-01 11:15 | disposition home or self-care (01) ==
LOC: SED 09:15
DX: S82.831A Other fracture of upper and lower end of right fibula, initial encounter for closed fracture (principal); I10 Essential (primary) hypertension; Z79.899 Other long term (current) drug therapy; W10.9XXA Fall (on) (from) unspecified stairs and steps, initial encounter; Y93.89 Activity, other specified; Y92.89 Other specified places as the place of occurrence of the external cause; Y99.8 Other external cause status
CPT/HCPCS: 99284

== ENCOUNTER 2019-11-20 10:25 | Emergency (ER) | payer BC ==
[~2019-11-20] VITALS: Ht 157.5 cm; Wt 81.6 kg
[2019-11-20 10:35] VITALS: BP_SYST 152
[2019-11-20 10:50] LABS: BASOPHILS % (AUTO) 0.4 % (0.0-2.0); EOSINOPHILS # (AUTO) 0.1 K/uL (0.0-0.4); EOSINOPHILS % (AUTO) 1.2 % (0.0-4.0); HEMATOCRIT 26.4 % (36-48); LYMPHOCYTES # (AUTO) 1.3 K/uL (1.0-5.5); LYMPHOCYTES % (AUTO) 21.5 % (20.5-51.5); MEAN CORPUSCULAR HEMOGLOBIN 32 pg (27-31); MEAN CORPUSCULAR HGB CONC 34 % (32-36); MEAN CORPUSCULAR VOLUME 93 fL (79.0-98.0); MONOCYTES # (AUTO) 0.5 K/uL (0.0-1.0); MONOCYTES % (AUTO) 8.7 % (1.7-9.3); NEUTROPHILS # (AUTO) 4.3 K/uL (1.8-7.7); NEUTROPHILS % (AUTO) 68.2 % (40.0-70.0); PLATELET COUNT (AUTO) 289 K/uL (130-430); RED BLOOD CELL COUNT(AUTO) 2.85 MIL/uL (4.2-6.2); RED CELL DISTRIBUTION WIDTH 14.1 % (9.0-15.0); WHITE BLOOD COUNT (AUTO) 6.2 K/uL (4.8-10.8)
[2019-11-20 11:03] LABS: ANION GAP 10 (5-15); CALCIUM 8.6 mg/dL (8.4-11.0); CHLORIDE 102 mmol/L (98-107); GLUCOSE 120 mg/dL (70-99); POTASSIUM 3.4 mmol/L (3.5-5.1); SODIUM SERUM 137 mmol/L (136-145); UREA NITROGEN, BLOOD 22 mg/dL (8-21)
[2019-11-20 11:05] LABS: GFR AFRICAN AMERICAN 77 mL/min (>90)
[2019-11-20 11:12] LABS: ALANINE AMINOTRANSFERASE 44 U/L (12-78); ALBUMIN 3.5 g/dL (3.4-4.8); ASPARTATE AMINOTRANSFERASE 28 U/L (10-37); TOTAL BILIRUBIN 0.2 mg/dL (0.0-1.0)
[2019-11-20 11:23] LABS: BILIRUBIN,URINE NEGATIVE (NEGATIVE); CLARITY/URINE CLEAR (CLEAR); COLOR,URINE YELLOW (YELLOW); GLUCOSE,URINE NEGATIVE (NEGATIVE); KETONES,URINE NEGATIVE (NEGATIVE); LEUKOCYTE ESTERASE ,URINE NEGATIVE (NEGATIVE); NITRITE, URINE NEGATIVE (NEGATIVE); PROTEIN URINE NEGATIVE (NEGATIVE); UROBILINOGEN,URINE 0.2 (0.2-1.0)
[2019-11-20 11:24] LABS: BLOOD, URINE TRACE (NEGATIVE)
[2019-11-20 11:27] LABS: BACTERIA,URINE FEW /HPF (None Seen); WBC,URINE 0-3 /HPF (0-3)
[2019-11-20 11:29] LABS: BARBITURATE, URINE NEGATIVE (NEG <=200); BENZODIAZEPINE, URINE NEGATIVE (NEG <=150); CANNABINOID, URINE NEGATIVE (NEG <=50); COCAINE, URINE NEGATIVE (NEG <=150); METHAMPHETAMINES SCREEN,URINE NEGATIVE (NEG <=500); OPIATE, URINE NEGATIVE (NEG <=100); PHENCYCLIDINE SCREEN,URINE NEGATIVE (NEG <=25); UR TRICYCLIC ANTIDEPRESSANTS NEGATIVE (NEG <=300); URINE AMPHETAMINE NEGATIVE (NEG <=500); URINE METHADONE NEGATIVE (NEG <=200); URINE OXYCODONE SCREEN NEGATIVE (NEG <=100); URINE PROPOXYPHENE SCREEN NEGATIVE (NEG <=300)
[2019-11-20] MEDS ORDERED: LORazepam 1 MG TABLET PO ONE (11:30)
[2019-11-20 11:32] LABS: THYROID STIMULATING HORMONE 2.68 uIu/mL (0.36-3.74)
[2019-11-20 12:30] VITALS: BP_SYST 152
== END 2019-11-20 12:30 | disposition home or self-care (01) ==
LOC: SED 10:25
DX: F41.9 Anxiety disorder, unspecified (principal); F32.9 Major depressive disorder, single episode, unspecified; D64.9 Anemia, unspecified; R00.0 Tachycardia, unspecified; I10 Essential (primary) hypertension; E07.9 Disorder of thyroid, unspecified; Z79.899 Other long term (current) drug therapy
CPT/HCPCS: 36415; 71045; 80053; 80307; 81000; 84439; 84443; 84484; 85025; 85379; 93005; 99285; G0482

== ENCOUNTER 2023-08-12 22:00 | Emergency (ER) | payer BC ==
[~2023-08-12] VITALS: Ht 157.5 cm; Wt 81.6 kg
[~2023-08-12 22:00] MED LIST changes: -CYAN50008 PO; +CYAN50009 PO; +LOSA-413 PO; -LOSA50TA3 PO; -MULT-1100 PO; +MULT-1193 PO
[2023-08-12 22:05] VITALS: BP_SYST 149; PULSE 107; RESP 20; TEMP 98.2; O2SAT 100
[2023-08-12] MEDS: MORPHINE 4 MG INJ. 4 MG/ML VIAL IVP ONE (22:47)
[2023-08-12] MEDS: ONDANSETRON HCL 4 MG/2 ML VIAL IVP ONE (22:51)
[2023-08-12 22:53] LABS: BASOPHILS % (AUTO) 0.5 % (0.0-2.0); EOSINOPHILS # (AUTO) 0.1 K/uL (0.0-0.4); EOSINOPHILS % (AUTO) 1.4 % (0.0-4.0); HEMATOCRIT 32.1 % (36-48); HEMOGLOBIN 10.6 g/dL (12.0-16.0); LYMPHOCYTES # (AUTO) 1.7 K/uL (1.0-5.5); LYMPHOCYTES % (AUTO) 19.6 % (20.5-51.5); MEAN CORPUSCULAR HEMOGLOBIN 29 pg (27-31); MEAN CORPUSCULAR HGB CONC 33 % (32-36); MEAN CORPUSCULAR VOLUME 86 fL (79.0-98.0); MONOCYTES # (AUTO) 0.8 K/uL (0.0-1.0); MONOCYTES % (AUTO) 8.8 % (1.7-9.3); NEUTROPHILS % (AUTO) 69.7 % (40.0-70.0); PLATELET COUNT (AUTO) 330 K/uL (130-430); RED BLOOD CELL COUNT(AUTO) 3.72 MIL/uL (4.2-6.2); RED CELL DISTRIBUTION WIDTH 15.1 % (9.0-15.0); WHITE BLOOD COUNT (AUTO) 8.6 K/uL (4.8-10.8)
[2023-08-12] MEDS: NACL 0.9% 1,000 ML IV ONE (23:13)
[2023-08-12 23:20] LABS: ANION GAP 15 (5-15); CALCIUM 9.2 mg/dL (8.4-11.0); CREATININE 1.22 mg/dL (0.55-1.30); SODIUM SERUM 142 mmol/L (136-145)
[2023-08-12 23:24] LABS: SERUM HCG (QUALITATIVE) NEGATIVE (NEGATIVE)
[2023-08-12 23:25] LABS: ALANINE AMINOTRANSFERASE 27 U/L (12-78); ALBUMIN 3.3 g/dL (3.4-4.8); ASPARTATE AMINOTRANSFERASE 19 U/L (10-37); BILIRUBIN,DIRECT < 0.1 mg/dL (0.0-0.3); LIPASE 40 U/L (16-77); TOTAL BILIRUBIN 0.1 mg/dL (0.0-1.0); TOTAL PROTEIN, SERUM 6.6 g/dL (6.4-8.3)
[2023-08-12 23:28] LABS: CHLORIDE 108 mmol/L (98-107); POTASSIUM 3.3 mmol/L (3.5-5.1)
[2023-08-12 23:29] LABS: CARBON DIOXIDE 19 mmol/L (23-29); GLUCOSE 121 mg/dL (74-106); UREA NITROGEN, BLOOD 24 mg/dL (8-21)
[2023-08-12 23:31] LABS: GFR AFRICAN AMERICAN 60 mL/min (>90)
[2023-08-12 23:32] LABS: GFR NON AFRICAN-AMERICAN 50 mL/min (>90)
[2023-08-12 23:44] LABS: BILIRUBIN,URINE 1+ (NEGATIVE); BLOOD, URINE 3+ (NEGATIVE); GLUCOSE,URINE NEGATIVE (NEGATIVE); KETONES,URINE TRACE (NEGATIVE); LEUKOCYTE ESTERASE ,URINE TRACE (NEGATIVE); PH,URINE 5.5 (5.0-8.0); PROTEIN URINE 2+ (NEGATIVE); UROBILINOGEN,URINE 0.2 (0.2-1.0)
[2023-08-12] MEDS: KETOROLAC TROMETHAMINE 15 MG VIAL IVP ONE (23:48)
[2023-08-13 00:07] LABS: COLOR,URINE RED (YELLOW)
[2023-08-13 00:11] LABS: CLARITY/URINE CLOUDY (CLEAR); NITRITE, URINE NEGATIVE (NEGATIVE)
[2023-08-13 00:13] LABS: BACTERIA,URINE FEW /HPF (None Seen); RBC,URINE >100 /HPF (0-3)
[2023-08-13] MEDS ORDERED: HYDR-3917 PO (00:46)
[2023-08-13] MEDS ORDERED: IBUP-1969 PO (00:46)
[2023-08-13 01:03] VITALS: BP_SYST 120; PULSE 84; RESP 18; TEMP 97.9; O2SAT 97
== END 2023-08-13 01:03 | disposition home or self-care (01) ==
LOC: SED 22:00
DX: N23 Unspecified renal colic (principal); N20.0 Calculus of kidney; R31.9 Hematuria, unspecified; E86.0 Dehydration; D64.9 Anemia, unspecified; I10 Essential (primary) hypertension; Z79.899 Other long term (current) drug therapy
CPT/HCPCS: 99285; 74176; 96374; 96375; 96361; 80076; 80048; 81001; 84703; 83690; 85025; 87086; 36415; 81000; 81015; J1885; J2405; J2270; J7030